=== PATIENT | male | born 1955 | race Caucasian/White ===

== ENCOUNTER 2018-02-15 18:11 | Inpatient (IN) | payer BC ==
[~2018-02-15] VITALS: Ht 170.2 cm; Wt 69.4 kg
[2018-02-15] VITALS (9 sets, daily range): BP systolic 99–150; BP diastolic 74–90
[2018-02-15] MEDS ORDERED: ZETIA10 MG PO (19:08)
[2018-02-15] MEDS ORDERED: CRESTOR20 MG PO (19:09)
[2018-02-15] MEDS ORDERED: TOPROL XL100 MG PO (19:10)
[2018-02-15] MEDS ORDERED: TOPROL XL50 MG PO (19:11)
[2018-02-15] MEDS ORDERED: SYNTHROID125 MCG PO (19:12)
[2018-02-15] MEDS ORDERED: MONOPRIL20 MG PO (19:19)
[2018-02-15 19:30] LABS: BASE EXCESS -2.6 mEq/L (-3 to +3); BICARBONATE 18.4 mEq/L (22-26); CARBOXY HGB 1.6 % (0-5); COMMENTS - BLOOD GASES A+C+; FI02 21 %; METHEMOGLOBIN 1.6 % (0-1.5); PCO2 22 mm Hg (35-45); PO2 83 mm Hg (80-100); SITE RR; pH 7.53 (7.35-7.45)
[2018-02-15 19:31] LABS: TOTAL RESP RATE 26 resp/min
[2018-02-15 20:15] LABS: BASOPHIL (%) 0.4 % (0-1); BASOPHIL COUNT 0.1 K/uL (0-0.1); EOSINOPHIL (%) 0 % (0-5); HEMATOCRIT 38.4 % (38.0-50.0); HEMOGLOBIN 13.1 G/DL (12.5-16.6); IMMATURE GRANULOCYTE (%) 4.2 % (0.0-0.7); LYMPHOCYTE (%) 6.6 % (15-42); LYMPHOCYTE COUNT 1.7 K/uL (1.0-2.8); MCHC 34.1 G/DL (30.0-36.0); MCV 79.2 FL (86-99); MONOCYTE (%) 10.5 % (3-12); MONOCYTE COUNT 2.7 K/uL (0-0.8); NEUTROPHIL (%) 78.3 % (45-76); NEUTROPHIL COUNT 20.1 K/uL (1.8-6.4); PLATELET COUNT 614 K/uL (156-360); RBC DIS.WIDTH-CV 12.6 % (11.8-14.6); RBC DIS.WIDTH-SD 35.6 % (39-53); RED BLOOD COUNT 4.85 M/uL (4.00-5.50); WHITE BLOOD COUNT 25.6 K/uL (4.1-10.2)
[2018-02-15 20:24] LABS: ALBUMIN 3.4 G/DL (3.2-4.8); ALKALINE PHOSPHATASE 126 IU/L (3-129); ALT (GPT) 18 IU/L (3-49); AST (GOT) 20 IU/L (2-34); CHLORIDE 103 MEQ/L (99-109); CREATINE KINASE 282 IU/L (1-294); CREATININE 1.7 MG/DL (0.6-1.3); GFR ESTIMATE (CALCULATED) 44 mL/min/ (58.99-99999); GLUCOSE 604 mg/dL (70-99); HIGH-SENS C-REACTIVE PROTEIN 5.16 MG/DL (0.02-0.20); MAGNESIUM 2.3 mg/dl (1.3-2.7); PHOSPHORUS 1.4 mg/dL (2.5-4.9); POTASSIUM 3.4 MEQ/L (3.7-5.4); SODIUM 147 MEQ/L (136-147); TOTAL BILIRUBIN 0.3 MG/DL (0.0-1.0); TOTAL CK 282 IU/L (1-294); TOTAL PROTEIN 6.2 G/DL (6.4-8.3); UREA NITROGEN (BUN) 57 mg/dL (9-23)
[2018-02-15 20:28] LABS: TROP-I INTERPRETATION NEGATIVE; TROPONIN-I 0.04 ng/mL (0.0-0.30)
[2018-02-15 21:38] LABS: CKMB RELATIVE INDEX 3.3 (0.0-3.9)
[2018-02-15 21:58] LABS: CK-MB 9.2 ng/mL (0.0-4.9)
[2018-02-15 21:59] LABS: AMYLASE 139 IU/L (1-118); LIPASE 16 U/L (1.0-51.0)
[2018-02-16] VITALS (23 sets, daily range): BP systolic 84–193; BP diastolic 57–117
[2018-02-16 04:44] LABS: CHLORIDE 117 mEq/L (99-109); POTASSIUM 3.5 mEq/L (3.7-5.4)
[2018-02-16 04:45] LABS: CHLORIDE 110 MEQ/L (99-109); CREATININE 1.6 MG/DL (0.6-1.3); GFR ESTIMATE (CALCULATED) 47 mL/min/ (58.99-99999); PHOSPHORUS 1.7 mg/dL (2.5-4.9); POTASSIUM 3.8 MEQ/L (3.7-5.4); SODIUM 151 MEQ/L (136-147); UREA NITROGEN (BUN) 54 mg/dL (9-23)
[2018-02-16 04:46] LABS: GLUCOSE 498 mg/dL (70-99)
[2018-02-16 04:48] LABS: GLUCOSE 174 mg/dL (70-99); SODIUM 157 mEq/L (136-147)
[2018-02-16 04:49] LABS: CREATININE 1.6 mg/dL (0.6-1.3); GFR ESTIMATE (CALCULATED) 47 mL/min/ (58.99-99999); PHOSPHORUS 3.8 mg/dL (2.5-4.9)
[2018-02-16 04:50] LABS: UREA NITROGEN (BUN) 51 mg/dL (9-23)
[2018-02-16 06:40] LABS: AMYLASE 223 IU/L (1-118)
[2018-02-16 08:45] LABS: CHLORIDE 117 MEQ/L (99-109); CREATININE 1.4 MG/DL (0.6-1.3); GFR ESTIMATE (CALCULATED) 55 mL/min/ (58.99-99999); GLUCOSE 160 mg/dL (70-99); POTASSIUM 3.7 MEQ/L (3.7-5.4); SODIUM 157 MEQ/L (136-147); UREA NITROGEN (BUN) 47 mg/dL (9-23)
[2018-02-16 08:54] LABS: PHOSPHORUS 4.4 mg/dL (2.5-4.9)
[2018-02-16 12:32] LABS: CHLORIDE 119 MEQ/L (99-109); CREATININE 1.5 MG/DL (0.6-1.3); GFR ESTIMATE (CALCULATED) 51 mL/min/ (58.99-99999); GLUCOSE 144 mg/dL (70-99); PHOSPHORUS 3.7 mg/dL (2.5-4.9); POTASSIUM 3.9 MEQ/L (3.7-5.4); SODIUM 159 MEQ/L (136-147); UREA NITROGEN (BUN) 45 mg/dL (9-23)
[2018-02-16 15:54] LABS: HEMATOCRIT 36.6 % (38.0-50.0); HEMOGLOBIN 12.3 G/DL (12.5-16.6); MCH 28.3 PG (29.0-34.0); MCHC 33.6 G/DL (30.0-36.0); NRBC (%) 0.1 /100 WBC (0-0); RBC DIS.WIDTH-SD 39.6 % (39-53); RED BLOOD COUNT 4.35 M/uL (4.00-5.50); WHITE BLOOD COUNT 24.1 K/uL (4.1-10.2)
[2018-02-16 15:55] LABS: ALBUMIN 2.9 G/DL (3.2-4.8); CHLORIDE 121 MEQ/L (99-109); POTASSIUM 4.1 MEQ/L (3.7-5.4); SODIUM 155 MEQ/L (136-147); TOTAL BILIRUBIN 0.3 MG/DL (0.0-1.0)
[2018-02-16 15:56] LABS: MCV 84.1 FL (86-99)
[2018-02-16] MEDS ORDERED: JALYN 0.5-0.41 EACH PO (15:58)
[2018-02-16 16:05] LABS: ALT (GPT) 17 IU/L (3-49); CREATININE 1.5 MG/DL (0.6-1.3); GFR ESTIMATE (CALCULATED) 51 mL/min/ (58.99-99999); PHOSPHORUS 2.9 mg/dL (2.5-4.9); TOTAL PROTEIN 5.4 G/DL (6.4-8.3); UREA NITROGEN (BUN) 44 mg/dL (9-23)
[2018-02-16 16:10] LABS: ALKALINE PHOSPHATASE 96 IU/L (3-129); AST (GOT) 30 IU/L (2-34); GLUCOSE 247 mg/dL (70-99)
[2018-02-16 16:36] LABS: BASOPHIL (%) 0.2 % (0-1); EOSINOPHIL (%) 0 % (0-5); LYMPHOCYTE (%) 3.4 % (15-42); LYMPHOCYTE COUNT 0.8 K/uL (1.0-2.8); MONOCYTE (%) 8.7 % (3-12); MONOCYTE COUNT 2.1 K/uL (0-0.8); NEUTROPHIL (%) 86.7 % (45-76); PLAT.SUFFICIENCY ADEQUATE
[2018-02-16 16:38] LABS: INTER. NORMALIZED RATIO 1.1
[2018-02-16 16:41] LABS: PTT 21.7 SEC (25-37)
[2018-02-16 16:49] LABS: PLATELET COUNT 401 K/uL (156-360)
[2018-02-16 20:56] LABS: APPEARANCE SL.HAZY ((CLEAR)); BILIRUBIN NEGATIVE; BLOOD NEGATIVE; COLOR YELLOW ((YELLOW)); GLUCOSE (STRIP) >=500; KETONES 20; LEUKOCYTES NEGATIVE; NITRITE NEGATIVE; PROTEIN (STRIP) NEGATIVE; SPECIFIC GRAVITY 1.018 (1.000-1.030); UROBILINOGEN 0.2 MG/DL (0.2-1.0)
[2018-02-16 21:02] LABS: BACTERIA RARE /HPF; EPITHELIAL CELLS RARE /HPF; MUCUS NONE SEEN /LPF; RED BLOOD CELLS 0-5 /HPF (0-5); UCUL ADDED? NO; WHITE BLOOD CELLS 0-5 /HPF (0-5)
[2018-02-16 22:12] LABS: APPEARANCE CLEAR/COLORLESS; CSF TUBE NUMBER TUBE #4; RED CELL COUNT 0 /MM^3 (0-1); WHITE CELL COUNT 5 /MM^3 (0-5)
[2018-02-16 22:16] LABS: CSF EOSINOPHILS 0 % (0-25); MONONUCLEAR WBC'S 100 % (50-90); POLYNUCLEAR WBC'S 0 % (0-3)
[2018-02-16 22:24] LABS: CSF PROTEIN 112 mg/dL (15-45)
[2018-02-16 22:29] LABS: GLUCOSE, CSF 186 mg/dL (40-80)
[2018-02-17] VITALS (27 sets, daily range): BP systolic 70–181; BP diastolic 43–110
[2018-02-17 04:54] LABS: INTER. NORMALIZED RATIO 1.2
[2018-02-17 04:57] LABS: ALBUMIN 2.5 g/dL (3.2-4.8)
[2018-02-17 04:58] LABS: CHLORIDE 117 mEq/L (99-109); SODIUM 149 mEq/L (136-147)
[2018-02-17 05:00] LABS: GLUCOSE 191 mg/dL (70-99); POTASSIUM 2.9 mEq/L (3.7-5.4); TOTAL PROTEIN 4.4 g/dL (6.4-8.3)
[2018-02-17 05:02] LABS: TOTAL BILIRUBIN 0.4 mg/dL (0.0-1.0)
[2018-02-17 05:03] LABS: ALKALINE PHOSPHATASE 99 IU/L (3-129)
[2018-02-17 05:04] LABS: BASOPHIL (%) 0.1 % (0-1); CREATININE 1.5 mg/dL (0.6-1.3); EOSINOPHIL (%) 0.2 % (0-5); GFR ESTIMATE (CALCULATED) 51 mL/min/ (58.99-99999); HEMATOCRIT 31.8 % (38.0-50.0); HEMOGLOBIN 10.7 G/DL (12.5-16.6); IMMATURE GRANULOCYTE (%) 0.6 % (0.0-0.7); LYMPHOCYTE (%) 14.7 % (15-42); LYMPHOCYTE COUNT 2.1 K/uL (1.0-2.8); MCH 27.8 PG (29.0-34.0); MCHC 33.6 G/DL (30.0-36.0); MCV 82.6 FL (86-99); MONOCYTE (%) 6.7 % (3-12); MONOCYTE COUNT 0.9 K/uL (0-0.8); NEUTROPHIL (%) 77.7 % (45-76); PLATELET COUNT 350 K/uL (156-360); RBC DIS.WIDTH-CV 12.9 % (11.8-14.6); RBC DIS.WIDTH-SD 38.7 % (39-53); RED BLOOD COUNT 3.85 M/uL (4.00-5.50); WHITE BLOOD COUNT 14.1 K/uL (4.1-10.2)
[2018-02-17 05:05] LABS: AST (GOT) 29 IU/L (2-34); UREA NITROGEN (BUN) 36 mg/dL (9-23)
[2018-02-17 05:07] LABS: ALT (GPT) 17 IU/L (3-49)
[2018-02-18] VITALS (22 sets, daily range): BP systolic 78–163; BP diastolic 55–94
[2018-02-18 06:06] LABS: HEMATOCRIT 38.3 % (38.0-50.0); HEMOGLOBIN 11.9 G/DL (12.5-16.6); MCH 26.8 PG (29.0-34.0); MCHC 31.1 G/DL (30.0-36.0); MCV 86.3 FL (86-99); PLATELET COUNT 266 K/uL (156-360); RBC DIS.WIDTH-CV 13.2 % (11.8-14.6); RBC DIS.WIDTH-SD 41.3 % (39-53); RED BLOOD COUNT 4.44 M/uL (4.00-5.50); WHITE BLOOD COUNT 12.4 K/uL (4.1-10.2)
[2018-02-18 06:31] LABS: CHLORIDE 116 MEQ/L (99-109); CREATININE 1.3 MG/DL (0.6-1.3); GFR ESTIMATE (CALCULATED) > 59 mL/min/ (58.99-99999); PHOSPHORUS 2.2 mg/dL (2.5-4.9); SODIUM 147 MEQ/L (136-147); UREA NITROGEN (BUN) 27 mg/dL (9-23)
[2018-02-18 06:39] LABS: MAGNESIUM 1.7 mg/dl (1.3-2.7); POTASSIUM 4.5 MEQ/L (3.7-5.4)
[2018-02-18 06:43] LABS: GLUCOSE 447 mg/dL (70-99)
[2018-02-18 14:44] LABS: Estimated Average Glucose 355 mg/dL (70-123)
[2018-02-18 14:53] LABS: HSV CSF Spec Source CSF (())
[2018-02-19] VITALS (17 sets, daily range): BP systolic 129–178; BP diastolic 68–103
[2018-02-19 05:31] LABS: HEMATOCRIT 35.2 % (38.0-50.0); HEMOGLOBIN 11.2 G/DL (12.5-16.6); MCH 26.5 PG (29.0-34.0); MCHC 31.8 G/DL (30.0-36.0); MCV 83.4 FL (86-99); PLATELET COUNT 277 K/uL (156-360); RBC DIS.WIDTH-CV 13.1 % (11.8-14.6); RBC DIS.WIDTH-SD 39.8 % (39-53); RED BLOOD COUNT 4.22 M/uL (4.00-5.50); WHITE BLOOD COUNT 11.5 K/uL (4.1-10.2)
[2018-02-19 06:09] LABS: CHLORIDE 118 MEQ/L (99-109); CREATININE 0.9 MG/DL (0.6-1.3); GFR ESTIMATE (CALCULATED) > 59 mL/min/ (58.99-99999); SODIUM 150 MEQ/L (136-147); UREA NITROGEN (BUN) 15 mg/dL (9-23)
[2018-02-19 06:11] LABS: GLUCOSE 173 mg/dL (70-99); MAGNESIUM 1.3 mg/dl (1.3-2.7); PHOSPHORUS 1.4 mg/dL (2.5-4.9); POTASSIUM 3.4 MEQ/L (3.7-5.4)
[2018-02-19] MEDS ORDERED: ALPRAZOLAM0.5 MG PO (09:15)
[2018-02-19 09:30] LABS: HEMOGLOBIN A1c (GLYCOHEMOGLOB) > 14.0 % (Below 5.7)
[2018-02-20 03:00] VITALS: BP 134/67
[2018-02-20 06:13] LABS: HEMATOCRIT 32.7 % (38.0-50.0); HEMOGLOBIN 10.7 G/DL (12.5-16.6); MCH 27.4 PG (29.0-34.0); MCHC 32.7 G/DL (30.0-36.0); MCV 83.6 FL (86-99); PLATELET COUNT 248 K/uL (156-360); RBC DIS.WIDTH-CV 13.2 % (11.8-14.6); RBC DIS.WIDTH-SD 39.6 % (39-53); RED BLOOD COUNT 3.91 M/uL (4.00-5.50); WHITE BLOOD COUNT 9.3 K/uL (4.1-10.2)
[2018-02-20 06:41] LABS: CHLORIDE 112 MEQ/L (99-109); CREATININE 0.8 MG/DL (0.6-1.3); GFR ESTIMATE (CALCULATED) > 59 mL/min/ (58.99-99999); GLUCOSE 160 mg/dL (70-99); SODIUM 144 MEQ/L (136-147); UREA NITROGEN (BUN) 10 mg/dL (9-23)
[2018-02-20 06:49] LABS: MAGNESIUM 1.6 mg/dl (1.3-2.7); PHOSPHORUS 1.9 mg/dL (2.5-4.9)
[2018-02-20 08:02] VITALS: BP 154/80
[2018-02-20 11:30] VITALS: BP 144/83
[2018-02-20 16:33] VITALS: BP 164/85
[2018-02-20 19:00] VITALS: BP 144/80; BP 155/87
[2018-02-20 23:01] VITALS: BP 155/81
[2018-02-21 02:45] VITALS: BP 126/76
[2018-02-21 03:30] VITALS: BP 171/93
[2018-02-21 06:39] LABS: HEMATOCRIT 34.4 % (38.0-50.0); HEMOGLOBIN 11.2 G/DL (12.5-16.6); MCH 27.5 PG (29.0-34.0); MCHC 32.6 G/DL (30.0-36.0); MCV 84.3 FL (86-99); PLATELET COUNT 273 K/uL (156-360); RBC DIS.WIDTH-SD 39.8 % (39-53); RED BLOOD COUNT 4.08 M/uL (4.00-5.50); WHITE BLOOD COUNT 7.3 K/uL (4.1-10.2)
[2018-02-21 07:03] LABS: CHLORIDE 110 MEQ/L (99-109); CREATININE 0.8 MG/DL (0.6-1.3); GFR ESTIMATE (CALCULATED) > 59 mL/min/ (58.99-99999); MAGNESIUM 1.5 mg/dl (1.3-2.7); POTASSIUM 3.5 MEQ/L (3.7-5.4); SODIUM 142 MEQ/L (136-147); UREA NITROGEN (BUN) 7 mg/dL (9-23)
[2018-02-21 07:05] LABS: GLUCOSE 80 mg/dL (70-99)
[2018-02-21 08:01] VITALS: BP 129/69
[2018-02-21] MEDS ORDERED: PROTONIX40 MG PO (10:34)
[2018-02-21] MEDS ORDERED: LEVEMIR100 UNIT/2 SC (10:34)
[2018-02-21] MEDS ORDERED: AUGMENTIN875 MG PO (10:40)
[2018-02-21 12:00] VITALS: BP 126/67
[2018-02-21] MEDS ORDERED: DOXYCYCLINE HY100 MG PO (12:46)
== END 2018-02-21 14:58 | disposition home or self-care (01) | DRG 70 ==
LOC: 4WEST 18:11 → ENRESERV 18:12 → 4WEST 18:16 → ENRESERV 02-19 17:51 → 4WEST 02-19 18:05 → ENRESERV 02-19 18:09 → 4EAST 02-19 23:08 → ENRESERV 02-21 02:31 → 5SOUTH 02-21 03:33 → ENPENDDIS 02-21 13:21 → 5SOUTH 02-21 14:58
PROVIDERS: Hospitalist; Internal Medicine; Internal Medicine Gastroenterology; Surgery
DX: G93.41 Metabolic encephalopathy (principal); E11.01 Type 2 diabetes mellitus with hyperosmolarity with coma; J96.90 Respiratory failure, unspecified, unspecified whether with hypoxia or hypercapnia; F05 Delirium due to known physiological condition; E11.10 Type 2 diabetes mellitus with ketoacidosis without coma; I10 Essential (primary) hypertension; J44.9 Chronic obstructive pulmonary disease, unspecified; E03.9 Hypothyroidism, unspecified; N40.0 Benign prostatic hyperplasia without lower urinary tract symptoms; E78.00 Pure hypercholesterolemia, unspecified; A09 Infectious gastroenteritis and colitis, unspecified; E87.2 Acidosis; F17.200 Nicotine dependence, unspecified, uncomplicated; F41.9 Anxiety disorder, unspecified; K21.9 Gastro-esophageal reflux disease without esophagitis; N17.9 Acute kidney failure, unspecified; Z91.19 Patient's noncompliance with other medical treatment and regimen; R41.82 Altered mental status, unspecified; K29.70 Gastritis, unspecified, without bleeding; Z79.4 Long term (current) use of insulin; E87.6 Hypokalemia; E86.0 Dehydration; Z91.11 Patient's noncompliance with dietary regimen; D72.829 Elevated white blood cell count, unspecified; Z80.7 Family history of other malignant neoplasms of lymphoid, hematopoietic and related tissues; F13.239 Sedative, hypnotic or anxiolytic dependence with withdrawal, unspecified
CPT/HCPCS: 36600; 70551; 71045; 74176; 80048; 80048 91; 80053; 81003; 82010; 82150; 82175 90; 82300 90; 82550; 82553; 82803; 82945; 82948; 83036; 83605; 83655 90; 83690; 83735; 83825 90; 84100; 84145 90; 84157; 84484; 85025; 85027; 85610; 85730; 86141; 86592 90; 86617 90; 86618 90; 87070; 87205; 87502; 87529 90; 87641; 87899; 89051; 93306; 94002; 94003; 94799; 95819; J1644; J1815; J1953; J2060; J2250; J2405; J2543; J2704; J3010; J3475; J3480; J7030; J7040; J7050